=== PATIENT | male | born 1975 | race Hispanic/Latino ===

== ENCOUNTER 2017-11-07 16:33 | Emergency (ER) | payer SELFPAY ==
[2017-11-07] MEDS ORDERED: KEFLEX500 M1 PO (17:37)
[2017-11-07 17:51] VITALS: BP 174/98
== END 2017-11-07 17:51 | disposition home or self-care (01) | DRG 605 ==
LOC: ED 16:33
PROC: 0HQKXZZ Repair Right Lower Leg Skin, External Approach (ICD-10-PCS; principal; 2017-11-07)
DX: S81.011A Laceration without foreign body, right knee, initial encounter (principal); W27.0XXA Contact with workbench tool, initial encounter; Y93.H2 Activity, gardening and landscaping; Y92.007 Garden or yard of unspecified non-institutional (private) residence as the place of occurrence of the external cause

== ENCOUNTER 2017-11-14 16:56 | Emergency (ER) | payer SELFPAY ==
[~2017-11-14] VITALS: Ht 157.5 cm; Wt 89.8 kg
[~2017-11-14 16:56] MED LIST: KEFLEX500 M1 PO
[2017-11-14 17:50] VITALS: BP 163/92
== END 2017-11-14 17:50 | disposition home or self-care (01) | DRG 950 ==
LOC: ED 16:56
DX: S81.011D Laceration without foreign body, right knee, subsequent encounter (principal); I10 Essential (primary) hypertension